=== PATIENT | female | born 1955 | race Caucasian/White ===

== ENCOUNTER 2017-05-01 07:00 | Inpatient (IN) | payer OTHER ==
[~2017-05-01] VITALS: Ht 154.9 cm; Wt 70.8 kg
[2017-07-05] MEDS ORDERED: METFORMIN HCL500 M2 PO (14:36)
[2017-07-05] MEDS ORDERED: SYNTHROID125 MCG PO (14:36)
[2017-07-05] MEDS ORDERED: GABAPENTIN100 M2 PO (14:37)
[2017-07-05] MEDS ORDERED: VALTREX500 M1 PO (14:37)
[2017-07-05] MEDS ORDERED: SPIRONOLACTONE25 M1 PO (14:38)
[2017-07-05] MEDS ORDERED: ESTRACE1 MG PO (14:39)
[2017-07-10] MEDS ORDERED: ALPRAZOLAM0.25 M1 PO (07:06)
--- NOTE | 2017-07-10 10:45 | Operative Report ---
Operative/Inv Procedure Report Surgery Date: 07/10/17 Name of Procedure: 1. C4/5, C5/6 ACDF with tritanium interbody cages, aviator anterior cervical plate and screws. autograft, DBM 2. Use of intraop fluoroscopy Pre-Operative Diagnosis: C45, C5 6 spondylosis, stenosis Post-Operative Diagnosis: Same Estimated Blood Loss: less than 50ml Surgeon/Laundry Worker: Nora MOROCHO,Anton Lin M.D. Anesthesia: general endotracheal tube Monitors: Neurophysiologic monitoring IV Fluids: replaced with crystalloid Implants: [place] aviator cervical plate, [place] titanium cervical cages, DBM Urine Output: Via Peterson Drains: Medium YUN Specimens: C4 5, C5 6 disc material Complications: None Condition: Stable Operative Indication: Patient is a 62-year-old woman with ongoing of neck and left arm pain and paresthesias despite compressive course of conservative treatment. Her imaging studies show an unstable C4 5 spondylolisthesis with a high-grade left foraminal stenosis and advanced degenerative C5 6 disc disease with disc thinning disc osteophyte complex and moderately severe to severe bilateral neural foraminal stenosis. In light of her failure to respond to nonoperative treatment, she now presents for surgical intervention in the way of a 2 level anterior cervical decompression and fusion C4 5, C5 6. Operative/Procedure Note Note: Patient was taken the operating room. After appropriate patient identification, neurophysiologic monitoring leads were placed and baseline recordings were obtained. The patient underwent the smooth induction of general endotracheal anesthesia without incident. Following intubation, monitoring was stable. A Peterson catheter was sterilely inserted. Patient was given 2 g of IV kefzol in Preoperative Prophylaxis. DVT Prophylaxis Was Utilized throughout the Case. Patient Was Positioned Supine on the Operating Table. The Neck Was Extended on a Donut with a Small Bump under the Shoulders. The Shoulders Were Retracted Downward with Tape. Neurophysiologic Monitoring Was Rechecked and Noted to Be Stable. The left ventral neck was widely prepped and draped usual sterile fashion using povidone iodine solution. The C-arm fluoroscope was sterilely draped and brought into play. The C5 vertebral body was identified in the overlying skin marked. A linear transverse skin incision was marked from the midline extending the left a partially 3-4 cm at the level of C5 and infiltrated with local anesthetic. We confirmed neutral position in the AP projection as well prior to starting the case. Skin incision was made with a 10 blade knife. Dissection was carried down through subcutaneous tissue with the Bovie to the platysma. The platysma muscle was identified elevated and divided. The subplatysmal planes were created rostrally and caudally. The medial aspect of sternocleidomastoid muscle was identified and the fascia incised and extended rostrally and caudally. Combination of digital and blunt dissection was used medial to sterile clinic mastoid and lateral to the trachea and esophagus down to the prevertebral fascia. The carotid sheath was identified, palpated reflected laterally under hand-held retractor. The fascia was incised with a peanut and reflected off the ventral vertebral bodies. Disc spaces were identified. A small gauge spinal needle was placed superficially within the presumed C45 interspace and a lateral cervical x-rays obtained to confirm this to be the correct level. with correct levels verified, we reflected the longus coli muscles about the C4 5, C5 6 disc spaces and self-retaining retractors were placed beneath the muscle. We first focused our attention to the level of C45. An annulotomy was performed with an 11 blade knife and discectomy completed with small straight and angled curettes and pituitary rongeurs. Distracting pins were placed in the vertebral bodies and the disc space was distracted under direct and fluoroscopic guidance. The posterior endplate osteophytes were sequentially removed with Kerrison rongeurs and were bulky. All cartilaginous endplates were removed. The posterior ligament additional ligament was elevated and resected from proximal foramen to proximal foramen allowing excellent decompression of the underlying dural sac. Particular attention was paid to the patient's symptomatically left side where endplate osteophytes were thinned with the [place] and further resected with Kerrisons to ensure an excellent decompression of the shoulder of the exiting C5 root. Once the discectomy was completed at this level, and after appropriate trials, a [id number] mm Red titanium cage was selected. The cage was then filled with morcellated autograft and DBM and gently tamped into the disc space and countersunk by approximately 1 mm. Distraction was released. The position of the device was confirmed visually and fluoroscopically and noted to be excellent. The Halbur retractor was released compressing the graft between the respective vertebral bodies in the Halbur pin removed in C4. On bleeding easily controlled with bone wax. We then focused our attention to C56. Distraction pins were removed at C4 5 and placed in the C5 and C6 vertebral endplates. The disc space was gently distracted under direct and fluoroscopic guidance. He was made with 11 blade knife. Superficial discectomy was performed small straight and angled curettes and pituitary rongeurs. Endplate osteophytes at the level of the spinal canal were sequentially resected with 2 and 3 mm Kerrison punches and proximal foramen to proximal foramen. The endplates were prepared for arthrodesis and all cartilaginous endplates were removed. Were further contoured to prepare them for fusion. After appropriate trials, a second [place] 6 x 14 x 17 titanium cage was selected. This was filled with demineralized bone matrix and local osteophytectomy bone gently tamped into the C6 disc space under direct and fluoroscopic guidance. The cage was countersunk by 1 or 2 mm its final position was confirmed visually and fluoroscopically. Once the cage was in position, the distraction was released compressing the cage against the respective vertebral bodies. Halbur pins were removed. A small amount of bone bleeding easily controlled with wax. We selected a 28 mm 6 hole Red aviator anterior titanium plate. This was gently lordosis in position from C4 to C6 with a plate-holding pin and the position of the plate was confirmed visually and fluoroscopically and noted to be excellent. Fixed to the vertebral bodies in a standard fashion piercing the bone with an awl and placing self drilling self-tapping screws. Two 14 mm screws were placed in each of C4, C5, and C6 with 2 trajectory of each screw slightly medial and the trajectory of the top and bottom screws slightly divergent to the plate. All screws were then finally tightened and the locking mechanisms were deployed. Final AP and lateral x-rays were obtained and saved and showed excellent position of the instrumentation. The C4 5 listhesis was noted to be reduced and improved intervertebral height was accomplished at both levels. The wound was copiously irrigated with bacitracin sterile saline irrigation. It was inspected and meticulous hemostasis is achieved prior to wound closure. Neurophysiologic monitoring was rechecked after placement of all the hardware and was stable. Then began closure. A medium YUN drain was placed into the wound secured to the skin with a 2-0 nylon suture. The platysma was reapproximated interrupted inverted 3-0 Vicryl suture. The skin was closed in layers with interrupted 3-0 Vicryl suture in the dermis and a running 4-0 Vicryl septic stitch in the skin. Wounds clean and dry. Steri-Strips and a sterile occlusive dressing was placed. Patient was placed in a soft collar. She was awakened and taken to PACU in stable condition. SHe was noted to be moving all 4 extremities at the completion of the case. All sponge nail edge encounter correct at the completion of seizure 3. Neurophysiologic monitoring was stable throughout the case. Discharge Disposition: PACU
--- NOTE | 2017-07-10 10:46 | Operative Report ---
Operative/Inv Procedure Report Surgery Date: 07/10/17 Name of Procedure: C4/5/5/6 acdf Use of Red anterior plating system using [place] titanium intervertebral biomechanical device placement using autograft and allograft using fluoroscopic guidance Pre-Operative Diagnosis: Cervical spondylosis and spondylolisthesis Post-Operative Diagnosis: Same Estimated Blood Loss: less than 50ml Surgeon/Fence Installer: Anton Melendez MD,Raissa Wyatt Anesthesia: general endotracheal tube Operative/Procedure Note Note: After successful administration of general endotracheal anesthesia all lines tubes and monitors position 16 patient positioned supine with head gently extended with a transverse roll under the shoulders and shoulder taped down so that radiographic expose the anterior cervical spine. We used the fluoroscope planned skin incision in the left anterior neck and whether skin creases over the C5 vertebral body. The patient was then prepped and draped using a normal sterile fashion fashion. A #10 blade was used to incise the left anterior neck this was deepened Bovie electrocautery to the platysma a Sharp dissection was carried down medial to the carotid sheath lateral to straight esophagus of the deep cervical fascia deep cervical fascia was divided and a bayoneted spinal needles placed the C4 5 disc space after levels confirmed using fluoroscopic guidance we elevated longus coli bilaterally insert soft tissue retractors. We used a rongeur to remove any anterior osteophytes saving the bone for autograft and disc space right total discectomy, she pituitaries curettes and Kerrison punches as removed deep reason a high-speed drill to drill the posterior osteophytes of the bodies of C4 5 and 6 we elevated PLL with an upgoing curet and provided a wide foraminotomies with a Kerrison punch. After satisfied with the bony ligament decompression endplates were curetted clean we trialed a 6 mm spacer this the appropriate size prepacked a 6 x 14 x 17 [place] titanium space with morselized autograft and D was bone matrix putty. Postoperative guidance the grafts were impacted of note Ethel pins placed the bodies of C4 5 and 6 and gentle in-line distraction was used. Motors and sensors were stable. We then secured in place a 28 mm [place] aviator plate which had a slight lordosis bent into it. We secured in place with 14 mm screws and locked into with the intrinsic locking mechanism. Was irrigated hemostasis obtained through separate stab incision over 7 YUN drain was left. It was then closed in layers using Vicryl for platysmal deep dermis and a subarticular further skin a dry sterile dressing was applied and the end of the case needle counts sponge and instruments were correct. The patient was taken to recovery in stable condition.
--- NOTE | 2017-07-10 11:45 | RADIOLOGY REPORT ---
EXAMINATION: CR CERVICAL SPINE/INTRAOPERATIVE FLUOROSCOPY CLINICAL INDICATION: ACD fusion C4 - C6 COMPARISON: MRI scan of the cervical spine dated 06/23/2017. TECHNIQUE/FINDINGS: Fluoroscopic equipment was dedicated to the operating room for the performance of an intraoperative procedure. Several (5) spot films were acquired and are archived in PACS. Please refer to operative notes for procedural detail. FLUOROSCOPY TIME: 0.2 minutes. IMPRESSION: Administrative dictation for intraoperative fluoroscopy and image archiving in PACS. Please refer to operative notes for details.
--- NOTE | 2017-07-10 13:20 | Surg Short-stay <48hrs Dis Sum ---
Visit Information Visit Dates Admission Date: 07/10/17 Discharge Date: 07/11/17 Surgical Short Stay DC Summary Admission Diagnosis: C4-5, C5-6 spondylosis, stenosis Final Diagnosis: same as above, s/p Surgery Date: 07/10/17 Name of Procedure: 1. C4/5, C5/6 ACDF with tritanium interbody cages, aviator anterior cervical plate and screws. autograft, DBM 2. Use of intraop fluoroscopy Procedure(s): Surgery Date: 07/10/17 Name of Procedure: 1. C4/5, C5/6 ACDF with tritanium interbody cages, aviator anterior cervical plate and screws. autograft, DBM 2. Use of intraop fluoroscopy Summary/Significant Findings: Operative Indication: Patient is a 62-year-old woman with ongoing of neck and left arm pain and paresthesias despite compressive course of conservative treatment. Her imaging studies show an unstable C4 5 spondylolisthesis with a high-grade left foraminal stenosis and advanced degenerative C5 6 disc disease with disc thinning disc osteophyte complex and moderately severe to severe bilateral neural foraminal stenosis. In light of her failure to respond to nonoperative treatment, she now presents for surgical intervention in the way of a 2 level anterior cervical decompression and fusion C4-5, C5-6. The patient electively planned C4/5, C5/6 ACDF with tritanium interbody cages, aviator anterior cervical plate and screws with autograft on 07/10/17 by for pre-operative diagnosis of C4-5, C5-6 spondylosis, and stenosis. IV ancef continued post-operatively until drain removed. Post-operative nausea treated with medications. Pain control transitioned from IV to oral medication as able. Condition at Discharge: stable Discharge Disposition: home or self care Discharge instructions provided to patient/family: Yes Post discharge follow-up plan: 2 week follow up with Copies to: Juve MOROCHO,Jerry Montez
--- NOTE | 2017-07-10 13:20 | PN- Neurosurgical ---
Subjective Subjective: POST-OP NOTE Reports dry mouth, nausea with 3 episodes of emesis despite zofran given in PACU , and some neck discomfort. She is asking if she can remove her soft cervical collar. Not yet out of bed. No dizziness. No shortness of breath. No chest pains. Awaiting more anti-emetic medication. Objective Vital Signs and I&Os pacu flowsheet reviewed Physical Exam: General - alert & oriented. uncomfortable. no acute distress. Neck - soft cervical collar in place. dressing c/d/i. YUN drain to bulb suction with scant bloody drainage (7.5 ml recorded on pacu flowsheet) Lungs - clear bilaterally. no w/r/r. Cardiac - s1s2. reg. Abdomen - soft. nontender Extremities - warm bilaterally. no c/c/e. calves soft and nontender b/l. upper extremity medical cost consultant strength 5/5 bilaterally. sensation grossly intact b/l. pulses symmetrical. Current Medications: Current Medications Sig/Vitaliy Start time Last Medication Dose Route Stop Time Status Admin Acetaminophen 1,000 MG Q6H 07/10 1400 AC N/A 1 UNIT IV 07/11 0814 Acetaminophen 1,000 MG Q6H 07/10 1145 DC N/A 1 UNIT IV 07/11 0559 Benzocaine/Menthol 1 IMTIAZ Q2P PRN 07/10 1345 AC PO Cefazolin Sodium 2 GM IQ8 07/10 1600 CAN IV Cefazolin Sodium 2 GM IQ8 07/10 1600 AC N/A 1 UNIT IV 07/11 1559 Dexamethasone 8 MG ONCE ONE 07/10 1315 DC IV 07/10 1316 Dextrose/Sodium 1,000 ML Q10H 07/10 1345 AC Chloride IV Diazepam 5 MG TID PRN 07/10 1145 AC PO Docusate Sodium 100 MG BID 07/10 1156 AC PO Estradiol 1 MG DAILY 07/11 0900 AC PO Gabapentin 100 MG DAILY 07/11 0900 AC PO Heparin Sodium 5,000 UNIT Q8 07/11 0600 AC (Porcine) SC Insulin Human Regular 0 TIDAC/HS 07/10 1700 AC SC Levothyroxine Sodium 0.125 MG DAILY 07/11 0900 AC PO Metformin HCl 500 MG 0800,1700 07/11 0800 AC PO Metformin HCl 500 MG 0800,1700 07/10 1700 DC PO Morphine Sulfate 4 MG Q4P PRN 07/10 1145 AC IV Ondansetron HCl 4 MG Q6P PRN 07/10 1345 AC IV Oxycodone HCl 5 MG Q6 PRN 07/10 1145 AC PO Oxycodone HCl 10 MG Q6 PRN 07/10 1145 AC PO Sodium Chloride 1,000 ML Q13H 07/10 1200 DC IV Sodium Chloride 1,000 ML .Q10H 07/10 1145 DC IV Spironolactone 25 MG DAILY 07/11 0900 AC PO Trimethobenzamide HCl 200 MG 4 TIMES/DAY PRN 07/10 1345 AC IM Valacyclovir HCl 500 MG DAILY 07/11 09 AC PO Assessment/Plan Assessment/Plan This 62 year old female with history of asthma, htn, diabetes, ex-smoker, is POD #0 s/p C4/5, C5/6 ACDF with tritanium interbody cages, aviator anterior cervical plate and screws and autograft, for pre-operative diagnosis of C4-5, C5-6 spondylosis and stenosis, currently with post-op nausea/vomiting clears as tolerated try decadron 8mg iv x one for n/v continue zofran / tigan prn n/v she is reluctant to take narcotics due to n/v, so may consider iv toradol in addition to iv tylenol valium prn spasms accuchecks / ss coverage. diabetic diet tomorrow if tolerating clears, and restart metformin hep sc to start in am home meds re-ordered soft cervical collar in place monitor YUN drain continue IV ancef until drain removed will d/w Core Measures Venous Thromboembolism VTE Risk Factors Surgery No Mechanical VTE Prophylaxis d/t N/A MechProphylax Ordered No VTE Pharm Prophylaxis d/t NA PharmProphylax ordered
[2017-07-10] MEDS ORDERED: DOCUSATE SODIU100 M3 PO (13:27)
[2017-07-10] MEDS ORDERED: VALIUM5 M2 PO (13:27)
[2017-07-10] MEDS ORDERED: PERCOCET 5-3251 EACH PO (13:27)
--- NOTE | 2017-07-10 13:29 | Patient Discharge Instructions ---
Discharge Instructions General Discharge Information You were seen/treated for: C4-5, C5-6 spondylosis, stenosis You had these procedures: Surgery Date: 07/10/17 Name of Procedure: 1. C4/5, C5/6 ACDF with tritanium interbody cages, aviator anterior cervical plate and screws. autograft, DBM 2. Use of intraop fluoroscopy Watch for these problems: fever>101.3, increased pain, redness/swelling/drainage, difficulty swallowing, shortness of breath, chest pains No bath, but you may shower: Yes Other wound care: shower with occlusive dressing Special Instructions: see pre-printed instructions Diet Continue normal diet: Yes Recommended Diet: Diabetic Activity Full Activity/No Limits: No Activity Self Limited: Yes Pounds, do NOT lift more than: 5 Activity Limited to: Weight bear as tolerated Other activity limits: no heavy lifting. no strenuous activity. collar as directed Acute Coronary Syndrome Inclusion Criteria At DC or during hospital stay patient has or had the following: ACS DIAGNOSIS No Discharge Core Measures Meds if any: Prescribed or Continued at Discharge Meds if any: NOT Prescribed or Continued at Discharge Congestive Heart Failure Inclusion Criteria At DC or during hospital stay patient has or had the following: CHF DIAGNOSIS No Discharge Core Measures Meds if any: Prescribed or Continued at Discharge Meds if any: NOT Prescribed or Continued at Discharge Cerebrovascular accident Inclusion Criteria At DC or during hospital stay patient has or had the following: CVA/TIA Diagnosis No Discharge Core Measures Meds if any: Prescribed or Continued at Discharge Meds if any: NOT Prescribed or Continued at Discharge Venous thromboembolism Inclusion Criteria VTE Diagnosis No VTE Type NONE VTE Confirmed by (Test) NONE Discharge Core Measures - Per Current guidelines, there needs to be overlap - treatment for the first 5 days of Warfarin therapy. - If discharged on Warfarin prior to 5 days of - overlap therapy, the patient will need to be - assessed for post discharge needs including - *Post discharge parental anticoagulation - *Warfarin and/or parental anticoagulation education - *Follow up date to check INR post discharge At least 5 days overlap therapy as Inpatient No Meds if any: Prescribed or Continued at Discharge Note: Overlap Therapy is Warfarin and Anticoagulant Meds if any: NOT Prescribed or Continued at Discharge
[2017-07-10 14:58] VITALS: BP 102/56
[2017-07-10] MEDS ORDERED: TIZANIDINE HCL2 M1 PO (15:31)
[2017-07-10 18:15] VITALS: BP 128/78
[2017-07-10 21:53] VITALS: BP 148/88
[2017-07-11 02:24] VITALS: BP 102/68
[2017-07-11 06:03] VITALS: BP 100/58
--- NOTE | 2017-07-11 11:08 | PN- Neurosurgical ---
Subjective Subjective: pt in bed, some pain, taking only tylenol bc pain meds made her very nauseous yesterday Ambulating, tolerating PO. denies cp/sob. denies paresthesias Drain pulled this moring Objective Vital Signs and I&Os Vital Signs Date Time Temp Pulse Resp B/P B/P Pulse O2 O2 Flow FiO2 Mean Ox Delivery Rate 07/11 0603 98.3 61 20 100/58 95 Room Air 07/11 0224 98.5 66 20 102/68 94 Room Air 07/10 2153 98.0 70 18 148/88 94 07/10 1929 Room Air 07/10 1815 97.9 73 16 128/78 96 07/10 1458 97.6 66 18 102/56 94 Room Air Intake & Output 07/11 1600 07/11 0800 07/11 0000 07/10 1600 07/10 0800 07/10 0000 Intake Total 920 1760 Output Total 855 870 Balance 65 890 Intake, IV 800 800 Intake, Oral 120 960 Output, 5 20 Drainage Output, Urine 850 850 Patient 156 lb Weight Weight Bed scale Measurement Method Physical Exam: gen- NAD resp- clear abd- ND, soft, NT neck- dressing changed, no signs of infection, no drainage, drain pulled. clean dry dressing placed Current Medications: Current Medications Sig/Vitaliy Start time Last Medication Dose Route Stop Time Status Admin Acetaminophen 1,000 MG Q6H 07/10 1400 DC 07/11 N/A 1 UNIT IV 07/11 0814 0946 Acetaminophen 1,000 MG Q6H 07/10 1145 DC N/A 1 UNIT IV 07/11 0559 Acetaminophen/ 1 TAB Q4P PRN 07/10 2230 CAN Butalbital/Caffeine PO Acetaminophen/ 1 TAB Q4P PRN 07/10 2230 AC 07/10 Butalbital/Caffeine PO 2235 Benzocaine/Menthol 1 IMTIAZ Q2P PRN 07/10 1345 AC 07/10 PO 2239 Cefazolin Sodium 2 GM IQ8 07/10 1600 CAN IV Cefazolin Sodium 2 GM IQ8 07/10 1600 AC 07/11 N/A 1 UNIT IV 07/11 1559 0816 Dexamethasone 8 MG ONCE ONE 07/10 1315 DC 07/10 IV 07/10 1316 1353 Dextrose/Sodium 1,000 ML Q10H 07/10 1345 DC 04/23 Chloride IV 2114 Diazepam 5 MG TID PRN 07/10 1145 DC PO Docusate Sodium 100 MG BID 07/10 1156 AC PO Estradiol 1 MG 1200 07/11 1200 AC PO Estradiol 1 MG DAILY 07/11 0900 DC PO Gabapentin 100 MG DAILY 07/11 0900 AC 07/11 PO 0946 Heparin Sodium 5,000 UNIT Q8 07/11 0600 AC 07/11 (Porcine) SC 0521 Hydroxyzine HCl 25 MG ONCE ONE 07/10 1630 DC PO 07/10 1631 Insulin Aspart 2 UNITS .STK-MED ONE 07/10 1726 DC SC 07/10 1727 Insulin Human Regular 0 TIDAC/HS 07/10 1700 AC 07/10 SC 1730 Ketorolac 15 MG ONCE ONE 07/11 0900 DC 07/11 Tromethamine IV 07/11 0901 0853 Ketorolac 15 MG Q6-PRN PRN 07/10 1515 DC Tromethamine IV 07/13 1514 Levothyroxine Sodium 0.125 MG DAILY 07/11 0900 AC 07/11 PO 0827 Metformin HCl 500 MG 0800,1700 07/11 0800 AC 07/11 PO 0946 Metformin HCl 500 MG 0800,1700 07/10 1700 DC PO Morphine Sulfate 4 MG Q4P PRN 07/10 1145 AC IV Ondansetron HCl 4 MG Q6P PRN 07/10 1345 AC 07/10 IV 1720 Oxycodone HCl 5 MG Q6 PRN 07/10 1145 AC PO Oxycodone HCl 10 MG Q6 PRN 07/10 1145 AC PO Sodium Chloride 1,000 ML Q13H 07/10 1200 DC IV Sodium Chloride 1,000 ML .Q10H 07/10 1145 DC IV Spironolactone 25 MG DAILY 07/11 0900 AC PO Tizanidine HCl 2 MG Q6-PRN PRN 07/10 1530 AC 07/11 PO 0411 Trimethobenzamide HCl 200 MG 4 TIMES/DAY PRN 07/10 1345 AC 07/10 IM 1549 Valacyclovir HCl 500 MG 1200 07/11 1200 AC PO Valacyclovir HCl 500 MG DAILY 07/11 0900 DC PO Assessment/Plan Assessment/Plan 62yo F Sp ACDF POD1. stable, nausea much better now with no narcotics. Drain pulled- dc abx tylenol for pain soft collar to be worn for comfort reg home meds radhames planning- home today FU with Nora in 7-10 days Core Measures Venous Thromboembolism VTE Risk Factors Surgery No Mechanical VTE Prophylaxis d/t N/A MechProphylax Ordered No VTE Pharm Prophylaxis d/t NA PharmProphylax ordered
[2017-07-11] MEDS ORDERED: TYLENOL EXTRA500 M2 PO (11:37)
[2017-07-11] MEDS ORDERED: TIZANIDINE HCL2 M1 PO (11:37)
== END 2017-07-11 12:17 | DRG 473 ==
LOC: SDA 07-10 01:13 → ENRESERV 07-10 10:55 → ENTRNSPT 07-10 12:23 → EDTRNSPTSTS 07-10 12:30 → EDTRNSPT 07-10 12:30 → 2NA 07-10 12:47 → CMPTRNSPT 07-10 12:59 → ENPENDDIS 07-11 09:09 → ENTRNSPT 07-11 11:42 → CMPTRNSPT 07-11 12:10 → 2NA 07-11 12:17
PROC: 0RG20A0 Fusion of 2 or more Cervical Vertebral Joints with Interbody Fusion Device, Anterior Approach, Anterior Column, Open Approach (ICD-10-PCS; principal; 2017-07-10)
PROC: 0RB30ZZ Excision of Cervical Vertebral Disc, Open Approach (ICD-10-PCS; principal; 2017-07-10)
DX: M48.02 Spinal stenosis, cervical region (principal); E11.9 Type 2 diabetes mellitus without complications; I10 Essential (primary) hypertension; J45.909 Unspecified asthma, uncomplicated; Z87.891 Personal history of nicotine dependence; Z85.850 Personal history of malignant neoplasm of thyroid; Z88.6 Allergy status to analgesic agent; Z88.8 Allergy status to other drugs, medicaments and biological substances; Z79.84 Long term (current) use of oral hypoglycemic drugs; Z79.818 Long term (current) use of other agents affecting estrogen receptors and estrogen levels; E89.0 Postprocedural hypothyroidism
CPT/HCPCS: 2NASP; 72040; 87086; C9399; J0131; J0690; J1100; J1644; J1815; J1885; J2405; J3250; J3490; J7042